=== PATIENT | male | born 1965 | race Caucasian/White ===

== ENCOUNTER 2021-07-28 09:28 | Day surgery (SDC) | payer OTHER ==
[2021-07-28] MEDS ORDERED: Sodium Chloride 0.9(Preservative Free) 10 ML IJ ONE (09:29)
[2021-07-28] MEDS ORDERED: Depo-Medrol 40 MG/ML IM ONE (09:29)
[2021-07-28] MEDS ORDERED: DIPRIVAN 200 MG/20 ML IV ONE (11:54)
[2021-07-28] MEDS ORDERED: Lactated Ringers 1,000 ML IV ONE (12:33)
--- NOTE | 2021-07-28 13:35 | XRAY ---
Indication: Right L4-S1 transforaminal DU. Intraoperative fluoroscopy provided for 31 seconds. 4 digital spot image submitted for interpretation demonstrates posterior needle tips projecting over the expected right L4 and L5 nerve roots. Small amount of contrast injected for needle tip placement. Correlate with intraoperative findings/report.
--- NOTE | 2021-07-30 10:29 | XRAY ---
31 seconds fluoroscopy time in surgery for right L4-S1 transforaminal DU.
== END 2021-07-28 12:25 | disposition home or self-care (01) ==
LOC: SDC-PAIN 09:28
PROVIDERS: ATTEND Psychiatry & Neurology Pain Medicine
DX: M54.16 Radiculopathy, lumbar region (principal); E11.9 Type 2 diabetes mellitus without complications; I10 Essential (primary) hypertension; Z79.899 Other long term (current) drug therapy
CPT/HCPCS: 64483; 64484; 72100; 77003; 82947; J1030; J2704; Q9966

== ENCOUNTER 2022-03-02 09:41 | Day surgery (SDC) | payer OTHER ==
[2022-03-02] MEDS ORDERED: LIDOCAINE HCL 2% 100 MG/5 ML IJ ONE (09:42)
[2022-03-02] MEDS ORDERED: Reglan 10 MG/2 ML ONE (10:13)
[2022-03-02] MEDS ORDERED: Zofran 4 MG/2 ML VIAL ONE (10:13)
[2022-03-02] MEDS ORDERED: Pepcid 20 MG VIAL IV ONE (10:13)
[2022-03-02] MEDS ORDERED: DIPRIVAN 200 MG/20 ML IV ONE (11:08)
[2022-03-02] MEDS ORDERED: Lactated Ringers 1,000 ML IV ONE (13:02)
--- NOTE | 2022-03-02 13:11 | XRAY ---
Indication: Right C3-C5 MBB. Intraoperative fluoroscopy provided for 25 seconds. 5 digital spot image submitted for interpretation demonstrates posterior needle tips projecting over the expected right C3-C5 nerve roots. Correlate with intraoperative findings/report.
--- NOTE | 2022-03-02 13:15 | XRAY ---
25 seconds fluoroscopy time in surgery for right C3-C5 MBB.
== END 2022-03-02 11:40 | disposition home or self-care (01) ==
LOC: SDC-PAIN 09:41
PROVIDERS: ATTEND Psychiatry & Neurology Pain Medicine
DX: M47.812 Spondylosis without myelopathy or radiculopathy, cervical region (principal); E11.9 Type 2 diabetes mellitus without complications; Z79.899 Other long term (current) drug therapy
CPT/HCPCS: 64490; 64491; 72040; 77002; 82947; J2405; J2704

== ENCOUNTER 2024-12-11 06:46 | Day surgery (SDC) | payer OTHER ==
[2024-12-11] MEDS ORDERED: LIDOCAINE HCL 2% 100 MG/5 ML IJ ONE (06:47)
[2024-12-11] MEDS ORDERED: propofoL IV ONE (08:23)
[2024-12-11] MEDS ORDERED: Lactated Ringers 1,000 ML IV ONE (09:03)
--- NOTE | 2024-12-11 11:53 | XRAY ---
Indication: Bilateral L4-S1 MBB. Intraoperative fluoroscopy provided for 11 seconds. Single digital spot image submitted for interpretation demonstrates posterior needle tips projecting over expected left and right L4-S1 nerve roots. Correlate with intraoperative findings/report. Incidental overlying ventral hernia mesh graft.
--- NOTE | 2024-12-11 12:55 | XRAY ---
11 seconds of fluoroscopy was used in surgery for a bilateral L4-S1 MBB.
== END 2024-12-11 08:58 | disposition home or self-care (01) ==
LOC: SDC-PAIN 06:46
PROVIDERS: ATTEND Psychiatry & Neurology Pain Medicine
DX: M47.817 Spondylosis without myelopathy or radiculopathy, lumbosacral region (principal); E11.9 Type 2 diabetes mellitus without complications

== ENCOUNTER 2025-01-15 07:59 | Day surgery (SDC) | payer OTHER ==
[2025-01-15] MEDS ORDERED: BUPIVACAINE 0.5% VIAL IJ ONE (08:00)
[2025-01-15] MEDS ORDERED: propofoL IV ONE (09:13)
[2025-01-15] MEDS ORDERED: Lactated Ringers 1,000 ML IV ONE (11:00)
--- NOTE | 2025-01-15 12:53 | XRAY ---
11 seconds of fluoroscopy was used in surgery for a bilateral L4-S1 MBB.
== END 2025-01-15 09:40 | disposition home or self-care (01) ==
LOC: SDC-PAIN 07:59
PROVIDERS: ATTEND Psychiatry & Neurology Pain Medicine
DX: M47.817 Spondylosis without myelopathy or radiculopathy, lumbosacral region (principal); E11.9 Type 2 diabetes mellitus without complications

== ENCOUNTER 2025-02-05 09:35 | Day surgery (SDC) | payer OTHER ==
[2025-02-05] MEDS ORDERED: LIDOCAINE HCL 1% 50 MG/5 ML VL IJ ONE (09:36)
[2025-02-05] MEDS ORDERED: methylPREDNISolone acetate IM ONE (09:36)
[2025-02-05] MEDS ORDERED: BUPIVACAINE 0.5% VIAL IJ ONE (09:36)
[2025-02-05] MEDS ORDERED: propofoL IV ONE (11:44)
--- NOTE | 2025-02-05 13:24 | XRAY ---
Indication: Right L4-S1 RFA. Intraoperative fluoroscopy provided for 17 seconds. 3 digital spot image submitted for interpretation demonstrates posterior needle tips projecting over expected right L4-S1 nerve roots. Correlate with intraoperative findings/report. Incidental overlying ventral hernia mesh graft.
--- NOTE | 2025-02-05 13:30 | XRAY ---
17 seconds of fluoroscopy was used in surgery for a right L4-S1 RFA.
[2025-02-05] MEDS ORDERED: Lactated Ringers 1,000 ML IV ONE (13:43)
== END 2025-02-05 12:20 | disposition home or self-care (01) ==
LOC: SDC-PAIN 09:35
PROVIDERS: ATTEND Psychiatry & Neurology Pain Medicine
DX: M47.817 Spondylosis without myelopathy or radiculopathy, lumbosacral region (principal); E11.9 Type 2 diabetes mellitus without complications